=== PATIENT | female | born 1995 | race Two or more races ===

== ENCOUNTER 2020-12-31 11:13 | Emergency (ER) | payer MEDICAID ==
[~2020-12-31] VITALS: Ht 157.5 cm; Wt 67.6 kg
[2020-12-31] MEDS ORDERED: ACETAMINOPHEN 500 MG TAB PO ONE (12:00)
[2020-12-31 12:36] VITALS: BP 113/67
== END 2020-12-31 12:40 | disposition home or self-care (01) ==
LOC: ER 11:13
DX: O26.892 Other specified pregnancy related conditions, second trimester (principal); G44.209 Tension-type headache, unspecified, not intractable; Z3A.20 20 weeks gestation of pregnancy
CPT/HCPCS: 81002